=== PATIENT | male | born 1950 | race Caucasian/White ===

== ENCOUNTER 2019-10-19 11:30 | Emergency (ER) | payer OTHER ==
[~2019-10-19] VITALS: Ht 185.4 cm; Wt 99.8 kg
[2019-10-19] MEDS ORDERED: BUPROPION XL300 MG PO (11:44)
[2019-10-19] MEDS ORDERED: XARELTO10 M1 PO (11:44)
[2019-10-19 13:37] VITALS: BP 157/90
== END 2019-10-19 13:37 | disposition home or self-care (01) ==
LOC: ER 11:30
DX: S01.01XA Laceration without foreign body of scalp, initial encounter (principal); I10 Essential (primary) hypertension; Z79.899 Other long term (current) drug therapy; Z98.890 Other specified postprocedural states; Z88.1 Allergy status to other antibiotic agents; W22.8XXA Striking against or struck by other objects, initial encounter; Y93.89 Activity, other specified; Y92.89 Other specified places as the place of occurrence of the external cause; Y99.8 Other external cause status

== ENCOUNTER 2019-10-29 16:10 | Emergency (ER) | payer OTHER ==
[~2019-10-29] VITALS: Ht 185.4 cm; Wt 102.1 kg
[~2019-10-29 16:10] MED LIST: BUPROPION XL300 MG PO; XARELTO10 M1 PO
[2019-10-29 16:13] VITALS: BP 154/97
== END 2019-10-29 16:52 | disposition home or self-care (01) ==
LOC: ER 16:10
DX: S01.81XD Laceration without foreign body of other part of head, subsequent encounter (principal); I10 Essential (primary) hypertension; Z86.718 Personal history of other venous thrombosis and embolism; Z98.890 Other specified postprocedural states; Z79.899 Other long term (current) drug therapy; Z88.1 Allergy status to other antibiotic agents; W20.8XXD Other cause of strike by thrown, projected or falling object, subsequent encounter